=== PATIENT | female | born 1975 | race Caucasian/White ===

== ENCOUNTER → 2017-08-18 | Outpatient (CLI) | payer OTHER ==
[2012-01-25 12:27] VITALS: BP 135/96
[~2017-08-18] MED LIST: NO HOME MEDICATIONS
== END ==
LOC: LAB 15:28 → RAD 15:28
DX: R06.09 Other forms of dyspnea (principal)

== ENCOUNTER 2022-01-29 23:12 | Emergency (ER) | payer OTHER ==
[~2022-01-29] VITALS: Ht 160 cm; Wt 81.8 kg
[2022-01-30 02:53] VITALS: BP 125/87
[2022-01-30] MEDS ORDERED: PREDNISONE20 M1 PO (02:56)
== END 2022-01-30 03:01 | disposition home or self-care (01) ==
LOC: ED 23:12
DX: T78.1XXA Other adverse food reactions, not elsewhere classified, initial encounter (principal); F17.210 Nicotine dependence, cigarettes, uncomplicated; Z91.018 Allergy to other foods
CPT/HCPCS: J2405; J2930; J3490; J7030